=== PATIENT | male | born 1975 | race Caucasian/White ===

== ENCOUNTER 2018-04-22 10:21 | Emergency (ER) | payer BC, OTHER ==
--- NOTE | 2018-04-22 10:43 | EDPHY ---
General - History Smoking Status: Never smoked Time Seen by Provider: 04/22/18 10:39 Narrative: CHIEF COMPLAINT: Back pain HISTORY OF PRESENT ILLNESS: Patient presents with complaints of back pain. This started abruptly on February 14 while doing barbell squats. The pain is located in the lower thoracic and upper lumbar spine. It is primarily left-sided. It does radiate around to the umbilicus in the abdomen. He describes it as pain with intermittent numbness and tingling. He feels the numbness and tingling "deep into my abdomen." He thought that he may have had some constipation but has had successful bowel movements since then. He has no bony tenderness. No fever. No lower extremity weakness, anesthesia or paresthesia. He is concerned as the symptoms have progressed and potentially worsened overnight. No other associated complaints or modifying factors. REVIEW OF SYSTEMS: Ten systems reviewed and are negative unless otherwise noted in the HPI PCP: Dr. Rory Tilley SPECIALISTS: None PAST MEDICAL HISTORY: Uncomplicated PAST SURGICAL HISTORY: None SOCIAL HISTORY: Never smoker. Occasional alcohol. Denies any history of illicit substance abuse. Lives in [facility]. 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 Well-developed and well-nourished. Head: normocephalic, atraumatic Eyes: Pupils equal and round, no conjunctival pallor or injection ENT, Mouth: Mucous membranes moist Neck: Normal inspection, supple, non-tender Respiratory: Lungs are clear to auscultation. No wheezing, rhonchi or crackles Cardiovascular: Regular rate and rhythm Gastrointestinal: Abdomen is soft and nontender. No CVA tenderness. Back: Normal appearance with minimal dextroscoliosis. No midline tenderness, crepitus or step-offs. There is soft tissue tenderness of the left lower musculature involving lower thoracic and upper lumbar. Range of motion is intact. Neurological: A&O, nonfocal, normal gait. Patellar reflexes are 2+. Strength of the great toes are symmetric at 5/5. Normal steady gait. Skin: Warm and dry, no rash. No petechiae or purpura. No vesicular lesions or dermatomal abnormalities Extremities: Nontender, no pedal edema. Symmetric range of motion of the upper lower extremities Psychiatric: Mood and affect normal DIFFERENTIAL DIAGNOSES: Including but not limited to disc herniation, disc bulge, disc rupture, vertebral fracture, spondylolisthesis, strain, sprain, acute cord compression MDM: 10:55 a.m. Left-sided lower thoracic lumbar pain that radiates into the umbilicus over the superficial dermatome. He is fully neuro intact distally with excellent strength, no evidence of acute cord compression or cauda equina. I have ordered x-rays of the thoracic and lumbar spine. I have ordered prednisone. He has no acute distress. 11:40 a.m. X-rays reveal minimal anterior height changes of T5 and L1. Suspect chronic and less likely traumatic. Patient's injury does not correlate with atraumatic compression fracture. I did discuss the findings of this x-ray in detail with him. I did offer an MRI to the patient for further delineation. He is comfortable with waiting for an outpatient MRI. I do feel this is reasonable at this time as he is neuro intact with no weakness or evidence of acute cord compression. I will treat with steroid and re-evaluated 12:00 p.m. Patient re-evaluated. We discussed discharge home with short course of steroid therapy, muscle relaxant pain medication. We discussed mandatory outpatient follow up with Spine or neurosurgeon specialist for further care. We discussed follow up with primary care physician to discuss MRI. We discussed strict ED precautions for any worsening pain, saddle anesthesia, incontinence of bowel or bladder, retention of bowel or bladder, motor or sensory changes of the lower extremity. He is comfortable this plan and discharged home in stable condition , fully ambulatory without assistance SUPERVISION: This patient was independently evaluated without direct involvement of or examination by the attending physician. (Jonathan Stallings) Medical Decision Making: I did not see this patient while he was in the emergency department. However his care was discussed with the PA while the patient was in the department. I agree with treatment plan and management (Mitch Cárdenas) - Objective Vital Signs: Initial Vital Signs Temperature (C) 97.9 F 04/22/18 10:27 Heart Rate 65 04/22/18 10:27 Respiratory Rate 18 04/22/18 10:27 Blood Pressure 131/65 H 04/22/18 10:27 O2 Sat (%) 97 04/22/18 10:27 O2 Delivery Mode Room Air Allergies/Adverse Reactions: No Known Allergies Allergy (Verified 04/22/18 10:26) Home Medications: Medication Instructions Recorded Cyclobenzaprine [Flexeril 10 MG 10 mg PO TID PRN #15 tab 04/22/18 (*)] oxyCODONE HCL/ACETAMINOPHEN 1 each PO Q4-6PRN PRN #7 tablet 04/22/18 [Percocet 5-325 mg Tablet] predniSONE [Deltasone] 60 mg PO DAILY #12 tablet 04/22/18 Medications Given: Discontinued Medications Prednisone (Prednisone) 60 mg PO EDNOW ONE Stop: 04/22/18 10:53 Last Admin: 04/22/18 11:16 Dose: 60 mg Departure - Departure Disposition: Home, Routine, Self-Care Clinical Impression: Thoracic radiculopathy Acute thoracic back pain Qualifiers: Back pain laterality: left Qualified Code(s): M54.6 - Pain in thoracic spine Condition: Good Instructions: Back Pain (ED) Additional Instructions: 1. Medications as prescribed as needed 2. Contact the on-call neurosurgeon for further care 3. contact established PCP to discuss further care and possible MRI if needed 4. Return to emergency department for any worsening pain, anesthesia of the lower extremities, paresthesia lower extremity, weakness of the lower extremity Referrals: Rory Tilley MD [Primary Care Provider] - As per Instructions Prescriptions: Cyclobenzaprine [Flexeril 10 MG (*)] 10 mg PO TID PRN #15 tab PRN Reason: Spasms oxyCODONE HCL/ACETAMINOPHEN [Percocet 5-325 mg Tablet] 1 each PO Q4-6PRN PRN #7 tablet PRN Reason: Pain, Breakthrough predniSONE [Deltasone] 60 mg PO DAILY #12 tablet
[2018-04-22] MEDS ORDERED: predniSONE 20 MG TAB PO ONE (10:52)
[2018-04-22 12:31] VITALS: BP 131/79
== END 2018-04-22 12:31 | disposition home or self-care (01) ==
DX: M54.14 Radiculopathy, thoracic region (principal)
CPT/HCPCS: J7512